=== PATIENT | male | born 2000 | race Caucasian/White ===

== ENCOUNTER 2025-09-27 14:24 | Inpatient (IN) | payer MEDICAID ==
[~2025-09-27] VITALS: Ht 177.8 cm; Wt 93.4 kg
[2025-09-27 14:29] VITALS: O2SAT 94
[2025-09-27] MEDS: PIPERACILLIN/TAZO 3.375G/50ML 50 ML IV ONE (15:31)
[2025-09-27] MEDS: SODIUM CHLORIDE 0.9% (SEPSIS BOLUS) IV ONE (15:31)
[2025-09-27] MEDS: ACETAMINOPHEN 325MG TABLET PO ONE (15:31)
[2025-09-27] MEDS: VANCOMYCIN 1G PREMIX 200 ML IV ONE (16:27)
[2025-09-27 16:38] LABS: BASOPHILS % 0.2 % (0.0-2.0); EOSINOPHILS % 0.2 % (0.0-5.0); HEMATOCRIT. 34.6 % (42.0-52.0); HEMOGLOBIN. 11.6 g/dL (14.0-18.0); LYMPHOCYTES % 10.8 % (20.0-50.0); MEAN PLATELET VOLUME 8.9 fl (7.4-10.4); MONOCYTES % 14.8 % (2.0-8.0); NEUTROPHILS % 74.0 % (40.0-76.0); PLATELET 221 x1000/uL (130-400); RED BLOOD CELL COUNT 3.77 mill/uL (4.7-6.1); RED CELL DISTRIBUTION WIDTH 14.0 % (11.6-14.6)
[2025-09-27 16:49] LABS: CREATININE 0.8 mg/dL (0.6-1.3)
[2025-09-27 16:50] LABS: UREA NITROGEN BLOOD 7 mg/dL (9-23)
[2025-09-27 16:51] LABS: ASPARTATE AMINOTRANSFERASE 49 IU/L (<34); TROPONIN I HIGH SENSITIVITY 33 ng/L (3.0-53)
[2025-09-27 16:52] LABS: BILIRUBIN DIRECT 0.3 mg/dL (<=3.0); BILIRUBIN TOTAL 0.7 mg/dL (0.1-1.0); PROTEIN TOTAL 7.0 g/dL (6.0-8.3)
[2025-09-27 18:12] LABS: CLARITY URINE CLEAR (CLEAR); COLOR URINE YELLOW (YELLOW); GLUCOSE URINE NEGATIVE (NEGATIVE); KETONES URINE NEGATIVE (NEGATIVE); LEUKOCYTE ESTERASE URINE NEGATIVE (NEGATIVE); NITRITE URINE NEGATIVE (NEGATIVE); OCCULT BLOOD URINE NEGATIVE (NEGATIVE); PH URINE 6.5 (4.5-8.0); PROTEIN URINE 1+ (NEGATIVE); SPECIFIC GRAVITY URINE 1.011 (1.005-1.030); UROBILINOGEN URINE 2.0 E.U./dL (0.2-1.0)
[2025-09-27 18:15] LABS: *AMPHETAMINES SCREEN URINE NEGATIVE (NEGATIVE); *BARBITURATES SCREEN URINE NEGATIVE (NEGATIVE); *BENZODIAZEPINES SCREEN URINE NEGATIVE (NEGATIVE); *COCAINE SCREEN URINE NEGATIVE (NEGATIVE); METHADONE URINE SCREEN NEGATIVE (NEGATIVE); OPIATES URINE SCREEN NEGATIVE (NEGATIVE)
[2025-09-27 18:16] LABS: CANNABINOID URINE SCREEN NEGATIVE (NEGATIVE); ECSTASY MDMA SCREEN URINE NEGATIVE (NEGATIVE); PHENCYCLIDINE URINE SCREEN NEGATIVE (NEGATIVE)
[2025-09-27] MEDS: POTASSIUM CHLORIDE 20MEQ/PACKET PO ONE (18:29)
[2025-09-27 18:50] LABS: SQUAMOUS EPITHELIAL CELL URINE FEW /lpf (RARE/1+)
[2025-09-27 18:51] LABS: BACTERIA URINE 1+; RBC URINE 0-2 /hpf (0-2); WBC URINE 0-2 /hpf (0-2)
[2025-09-27 19:00] LABS: INR 1.2
[2025-09-27] MEDS ORDERED: DOCUSATE SODIUM 100MG CAPSULE PO PRN (19:45)
[2025-09-27] MEDS ORDERED: ONDANSETRON HCL 4MG/2ML INJ IV PRN (19:45)
[2025-09-27] MEDS ORDERED: IPRATROPIUM/ALBUTEROL 0.5-3(2.5)MG/3ML NEB HHN PRN (19:45)
[2025-09-27] MEDS ORDERED: MAGNESIUM/ALUMINUM HYDROXIDE/SIMETHICONE 30ML UDC PO PRN (19:45)
[2025-09-27 20:00] VITALS: BP 104/59; PULSE 115; RESP 18; TEMP 36.6; O2SAT 93
[2025-09-27] MEDS: CALCIUM GLUCONATE 1GM PREMIX 100 ML IV NR (21:27)
[2025-09-27] MEDS: PIPERACILLIN/TAZO 3.375G/50ML 50 ML IV SCH (23:04)
[2025-09-27] MEDS: DEXT 5%/0.9% NACL 1,000 ML IV ONE (23:04)
[2025-09-27] MEDS: ACETAMINOPHEN 325MG TABLET PO PRN (23:33)
[2025-09-28] VITALS (7 sets, daily range): BP systolic 100–139; BP diastolic 48–78; PULSE 109–121; RESP 18–20; TEMP 36.4–39.4; O2SAT 90–94
[2025-09-28] MEDS: VANCOMYCIN 1.25GM/250ML 250 ML IV SCH (01:14)
[2025-09-28] MEDS: NICOTINE 14MG PATCH TD SCH (09:02)
[2025-09-28] MEDS: LACTATED RINGERS 1,000 ML IV ONE (12:45)
[2025-09-28] MEDS: ENOXAPARIN 40MG/0.4ML SYR SUBCUT SCH (13:00)
[2025-09-28 18:02] LABS: BASOPHILS % 0.3 % (0.0-2.0); EOSINOPHILS % 0.7 % (0.0-5.0); HEMATOCRIT. 30.9 % (42.0-52.0); HEMOGLOBIN. 10.2 g/dL (14.0-18.0); LYMPHOCYTES % 8.4 % (20.0-50.0); MEAN PLATELET VOLUME 9.4 fl (7.4-10.4); MONOCYTES % 13.1 % (2.0-8.0); NEUTROPHILS % 77.5 % (40.0-76.0); PLATELET 212 x1000/uL (130-400); RED BLOOD CELL COUNT 3.37 mill/uL (4.7-6.1); RED CELL DISTRIBUTION WIDTH 14.0 % (11.6-14.6)
[2025-09-28 18:39] LABS: CREATININE 0.6 mg/dL (0.6-1.3)
[2025-09-28 18:41] LABS: PHOSPHORUS 2.2 mg/dL (2.5-4.9)
[2025-09-28 18:42] LABS: UREA NITROGEN BLOOD 7 mg/dL (9-23)
[2025-09-28] MEDS: FAMOTIDINE 20MG TABLET PO SCH (22:45)
[2025-09-29] VITALS: BP 112/60; PULSE 115; RESP 18; TEMP 39; O2SAT 96
[2025-09-29] MEDS: HYDROXYZINE 25MG TABLET PO PRN (00:55)
[2025-09-29 04:00] VITALS: BP 123/66; PULSE 103; RESP 18; TEMP 36.5; O2SAT 95
[2025-09-29 08:00] VITALS: BP 122/74; PULSE 113; RESP 20; TEMP 36.8; O2SAT 98
[2025-09-29] MEDS: SODIUM CHLORIDE 0.9% 500 ML IV ONE (11:30)
[2025-09-29] MEDS ORDERED: DEXTROSE 50% WATER 50ML SYRINGE IV PRN (11:45)
[2025-09-29] MEDS: BLOOD SUGAR DIAGNOSTIC STRIP TEST SCH (11:45)
[2025-09-29 12:00] VITALS: BP 138/69; PULSE 102; RESP 18; TEMP 36.4; O2SAT 97
[2025-09-29] MEDS: INSULIN LISPRO 100 UNITS/ML SUBCUT SCH (12:15)
[2025-09-29] MEDS: LACTATED RINGERS 1,000 ML IV SCH (15:00)
[2025-09-29] MEDS: KCL 20MEQ/100ML PREMIX 100 ML IV SCH ×2 (15:35→18:15)
[2025-09-29] MEDS: POTASSIUM PHOSPHATE 20 MMOL in DEXT 5% WATER 243.3333 ML IV SCH (17:44)
[2025-09-29] MEDS: IBUPROFEN 600MG TABLET PO PRN (17:45)
[2025-09-29 20:00] VITALS: BP 112/69; PULSE 96; RESP 16; TEMP 37.2; O2SAT 95
[2025-09-29] MEDS ORDERED: CLONIDINE 0.1MG TABLET PO PRN (22:00)
[2025-09-29] MEDS: CLONIDINE 0.1MG TABLET PO NR (22:17)
[2025-09-29] MEDS: BUPRENORPHINE 8MG SL TABLET SL NR (23:48)
[2025-09-30 04:00] VITALS: BP 101/68; PULSE 94; RESP 16; TEMP 37; O2SAT 94
[2025-09-30 06:35] LABS: BASOPHILS % 0.2 % (0.0-2.0); EOSINOPHILS % 5.0 % (0.0-5.0); HEMATOCRIT. 33.1 % (42.0-52.0); HEMOGLOBIN. 11.0 g/dL (14.0-18.0); LYMPHOCYTES % 14.7 % (20.0-50.0); MEAN PLATELET VOLUME 8.4 fl (7.4-10.4); MONOCYTES % 11.2 % (2.0-8.0); NEUTROPHILS % 68.9 % (40.0-76.0); PLATELET 269 x1000/uL (130-400); RED BLOOD CELL COUNT 3.64 mill/uL (4.7-6.1); RED CELL DISTRIBUTION WIDTH 14.7 % (11.6-14.6)
[2025-09-30 07:54] LABS: CREATININE 0.6 mg/dL (0.6-1.3)
[2025-09-30 07:55] LABS: UREA NITROGEN BLOOD 10 mg/dL (9-23)
[2025-09-30 07:57] LABS: PHOSPHORUS 5.6 mg/dL (2.5-4.9)
[2025-09-30 08:00] VITALS: BP 128/69; PULSE 100; RESP 20; TEMP 36.6; O2SAT 95
[2025-09-30 12:00] VITALS: BP 123/77; PULSE 71; RESP 18; TEMP 36.4; O2SAT 95
[2025-09-30] MEDS: CLINDAMYCIN 900MG PREMIX 50 ML IV SCH (15:08)
[2025-09-30 16:00] VITALS: BP 118/74; PULSE 103; RESP 18; TEMP 36.8; O2SAT 95
[2025-09-30] MEDS: LACTOBACILLUS RHAMNOSUS GG CAP PO SCH (16:15)
[2025-09-30 20:00] VITALS: BP 114/57; PULSE 103; RESP 18; TEMP 36.8; O2SAT 94
[2025-09-30] MEDS: VANCOMYCIN 1.75GM PMX (XELLIA) 350 ML IV SCH (21:15)
[2025-10-01] VITALS: BP 113/63; PULSE 100; RESP 18; TEMP 36.6; O2SAT 96
[2025-10-01 04:00] VITALS: BP 118/60; PULSE 92; RESP 18; TEMP 36.6; O2SAT 99
[2025-10-01 07:16] LABS: BASOPHILS % 0.3 % (0.0-2.0); EOSINOPHILS % 4.6 % (0.0-5.0); HEMATOCRIT. 33.4 % (42.0-52.0); HEMOGLOBIN. 11.1 g/dL (14.0-18.0); LYMPHOCYTES % 15.5 % (20.0-50.0); MEAN PLATELET VOLUME 8.5 fl (7.4-10.4); MONOCYTES % 12.2 % (2.0-8.0); NEUTROPHILS % 67.4 % (40.0-76.0); PLATELET 308 x1000/uL (130-400); RED BLOOD CELL COUNT 3.62 mill/uL (4.7-6.1); RED CELL DISTRIBUTION WIDTH 14.5 % (11.6-14.6)
[2025-10-01 07:37] LABS: CREATININE 0.7 mg/dL (0.6-1.3); UREA NITROGEN BLOOD 11 mg/dL (9-23)
[2025-10-01 08:00] VITALS: BP 111/57; PULSE 99; RESP 18; TEMP 36.7; O2SAT 99
[2025-10-01 12:00] VITALS: BP 133/78; PULSE 96; RESP 18; TEMP 36.5; O2SAT 98
[2025-10-01 16:00] VITALS: BP 115/75; PULSE 91; RESP 16; TEMP 37.1; O2SAT 97
[2025-10-01 20:00] VITALS: BP 124/76; PULSE 99; RESP 18; TEMP 36.5; O2SAT 92
[2025-10-01] MEDS: GUAIFENESIN 200MG/10ML SUGAR FREE UDC PO PRN (20:20)
[2025-10-02] VITALS: BP 118/62; PULSE 91; RESP 18; TEMP 36.3; O2SAT 91
[2025-10-02 04:00] VITALS: BP_SYST 100; BP_SYST 119; BP_DIAS 48; BP_DIAS 77; PULSE 44; PULSE 94; RESP 17; RESP 18; TEMP 36.6; O2SAT 92; O2SAT 98
[2025-10-02 08:00] VITALS: BP 119/65; PULSE 84; RESP 16; TEMP 35.7; O2SAT 98
[2025-10-02 12:00] VITALS: BP 120/70; PULSE 90; RESP 16; TEMP 36.2; O2SAT 95
[2025-10-02 16:00] VITALS: BP 121/69; PULSE 94; RESP 18; TEMP 36.4; O2SAT 96
[2025-10-02] MEDS ORDERED: ZINC OXIDE 20% OINT 30GM TOP PRN (16:00)
[2025-10-02] MEDS: PETROLATUM,WHITE OINTMENT 100GM JAR TOP SCH (17:34)
[2025-10-02 20:00] VITALS: BP 122/69; PULSE 78; RESP 18; TEMP 36.7; O2SAT 96
[2025-10-03] VITALS: BP 92/53; PULSE 70; RESP 18; TEMP 36.6; O2SAT 94
[2025-10-03 01:45] VITALS: BP 111/70; PULSE 76; RESP 20; TEMP 36.1; O2SAT 95
[2025-10-03 08:00] VITALS: BP 109/51; PULSE 69; RESP 18; TEMP 36.8; O2SAT 100
[2025-10-03 12:00] VITALS: BP 100/62; PULSE 61; RESP 19; TEMP 36.3; O2SAT 100
[2025-10-03 16:00] VITALS: BP 113/68; PULSE 87; RESP 18; TEMP 36.6; O2SAT 99
[2025-10-03 17:43] LABS: BASOPHILS % 0.4 % (0.0-2.0); EOSINOPHILS % 2.3 % (0.0-5.0); HEMATOCRIT. 37.8 % (42.0-52.0); HEMOGLOBIN. 12.8 g/dL (14.0-18.0); LYMPHOCYTES % 21.1 % (20.0-50.0); MEAN PLATELET VOLUME 8.1 fl (7.4-10.4); MONOCYTES % 6.9 % (2.0-8.0); NEUTROPHILS % 69.3 % (40.0-76.0); PLATELET 390 x1000/uL (130-400); RED BLOOD CELL COUNT 4.16 mill/uL (4.7-6.1); RED CELL DISTRIBUTION WIDTH 14.1 % (11.6-14.6)
[2025-10-03 17:59] LABS: CREATININE 0.7 mg/dL (0.6-1.3); UREA NITROGEN BLOOD 10 mg/dL (9-23)
[2025-10-03 20:00] VITALS: BP 129/75; PULSE 81; RESP 20; TEMP 36.2; O2SAT 95
[2025-10-03] MEDS: VANCOMYCIN 1.25GM/250ML 250 ML IV SCH (20:43)
[2025-10-04] VITALS: BP 126/76; PULSE 80; RESP 20; TEMP 36.2; O2SAT 97
[2025-10-04 04:00] VITALS: BP 130/72; PULSE 84; RESP 20; TEMP 36.2; O2SAT 96
[2025-10-04 08:00] VITALS: BP 104/50; PULSE 72; RESP 19; TEMP 37.1; O2SAT 99
[2025-10-04 10:51] LABS: BASOPHILS % 0.4 % (0.0-2.0); EOSINOPHILS % 2.5 % (0.0-5.0); HEMATOCRIT. 39.3 % (42.0-52.0); HEMOGLOBIN. 13.0 g/dL (14.0-18.0); LYMPHOCYTES % 21.3 % (20.0-50.0); MEAN PLATELET VOLUME 7.9 fl (7.4-10.4); MONOCYTES % 6.9 % (2.0-8.0); NEUTROPHILS % 68.9 % (40.0-76.0); PLATELET 384 x1000/uL (130-400); RED BLOOD CELL COUNT 4.33 mill/uL (4.7-6.1); RED CELL DISTRIBUTION WIDTH 14.2 % (11.6-14.6)
[2025-10-04 12:00] VITALS: BP 108/62; PULSE 89; RESP 19; TEMP 36.4; O2SAT 100
[2025-10-04 16:00] VITALS: BP 113/76; PULSE 81; RESP 18; TEMP 36.4; O2SAT 95
[2025-10-04 17:57] VITALS: BP 113/76; PULSE 81; RESP 18; TEMP 97.6
[2025-10-04] MEDS: ACETAMINOPHEN 325MG TABLET PO PRN (18:57)
== END 2025-10-04 19:10 | disposition home or self-care (01) | DRG 720 ==
LOC: ER 14:24 → 5WST 18:28 → 6EST 10-03 01:30
PROVIDERS: ADMIT Hospitalist; ATTEND Hospitalist
DX: A41.9 Sepsis, unspecified organism (principal); G92.8 Other toxic encephalopathy; E83.39 Other disorders of phosphorus metabolism; D50.9 Iron deficiency anemia, unspecified; F17.210 Nicotine dependence, cigarettes, uncomplicated; E87.6 Hypokalemia; L03.115 Cellulitis of right lower limb; L03.116 Cellulitis of left lower limb; E87.8 Other disorders of electrolyte and fluid balance, not elsewhere classified; E83.51 Hypocalcemia; E87.1 Hypo-osmolality and hyponatremia; M25.469 Effusion, unspecified knee; R73.03 Prediabetes
CPT/HCPCS: 36415; 71045; 72192; 73610; 73700; 80048; 80076; 80202; 80305; 80320; 81003; 82550; 82962; 83036; 83605; 83735; 84100; 84145; 84484; 85025; 85379; 86141; 93005; 93970; 99285; A4606; A4615; J0612; J1650; J1815; J2543; J3373; J3480; J3490; J7030; J7060; J7120; G0480